=== PATIENT | female | born 1975 | race Caucasian/White ===

== ENCOUNTER 2020-04-11 20:26 | Inpatient (IN) | payer MEDICAID ==
[~2020-04-11] VITALS: Ht 165.1 cm; Wt 57.8 kg
[2020-04-11 22:10] LABS: AMPHET/METH SCREEN,URINE POSITIVE (NEGATIVE); BARBITURATE SCREEN, URINE NEGATIVE (NEGATIVE); BENZODIAZEPINES SCREEN,URINE NEGATIVE (NEGATIVE); CANNABINOID SCREEN,URINE NEGATIVE (NEGATIVE); COCAINE SCREEN,URINE NEGATIVE (NEGATIVE); METHADONE SCREEN, URINE NEGATIVE (NEGATIVE); OPIATE SCREEN,URINE NEGATIVE (NEGATIVE)
[2020-04-11 22:14] LABS: PHENCYCLIDINE SCREEN,URINE NEGATIVE (NEGATIVE)
[2020-04-11 22:31] LABS: BASOPHILS % (AUTO) 0.9 % (0.0-2.0); EOSINOPHILS % (AUTO) 1.8 % (1.0-6.0); HEMATOCRIT 33.4 % (36-46); LYMPHOCYTES # (AUTO) 2.3 K/uL (1.0-4.8); LYMPHOCYTES % (AUTO) 22.4 % (22.0-44.0); MEAN CORPUSCULAR HEMOGLOBIN 28.1 pg (26.0-34.0); MEAN CORPUSCULAR VOLUME 85 fL (80-100); MONOCYTES # (AUTO) 0.9 K/uL (0.1-1.0); NEUTROPHILS # (AUTO) 6.7 K/uL (1.8-7.7); NEUTROPHILS % (AUTO) 65.9 % (40.0-70.0); PLATELET COUNT (AUTO) 296 K/uL (150-450); RED BLOOD CELL COUNT(AUTO) 3.92 MIL/uL (4.00-5.20); RED CELL DISTRIBUTION WIDTH 14.9 % (11.5-14.5)
[2020-04-11] MEDS ORDERED: LORazepam 2 MG TABLET PO ONE (23:00)
[2020-04-11] MEDS ORDERED: IBUPROFEN 600 MG TABLET PO ONE (23:00)
[2020-04-11 23:11] LABS: ANION GAP 8 mmol/L (8-16); CALCIUM, TOTAL 9.3 mg/dL (8.8-10.5); CARBON DIOXIDE 28 mmol/L (22-29); CHLORIDE 101 mmol/L (98-107); CREATININE 0.84 mg/dL (0.60-1.30); GLOMERULAR FILTR. RATE CALC > 60 mL/min (>60); GLUCOSE,RANDOM 105 mg/dL (70-110); POTASSIUM 3.7 mmol/L (3.5-5.1); SODIUM SERUM 137 mmol/L (136-145)
[2020-04-11 23:34] LABS: ALANINE AMINOTRANSFERASE 17 U/L (12-78); ALBUMIN 3.2 g/dL (3.4-5.0); ALKALINE PHOSPHATASE 82 U/L (46-116); ASPARTATE AMINOTRANSFERASE 14 U/L (15-37); BILIRUBIN,TOTAL 0.3 mg/dL (0.1-1.0); HCG,QUANTITATIVE 2 mIU/mL (0-6); TOTAL PROTEIN, SERUM 7.3 g/dL (6.4-8.2); UREA NITROGEN, BLOOD 21 mg/dL (7-18)
[2020-04-12] MEDS ORDERED: ZOLPIDEM TARTRATE 10 MG TABLET PO PRN (01:00)
[2020-04-12 02:45] VITALS: BP 108/67
[2020-04-12] MEDS ORDERED: BENZOCAINE/MENTHOL LOZENGE MM PRN (06:45)
[2020-04-12] MEDS ORDERED: OMEPRAZOLE 20 MG CAPSULE PO PRN (06:45)
[2020-04-12] MEDS ORDERED: ACETAMINOPHEN 325 MG TABLET PO PRN (06:45)
[2020-04-12] MEDS ORDERED: IBUPROFEN 600 MG TABLET PO PRN (06:45)
[2020-04-12] MEDS ORDERED: LOPERAMIDE HCL 2 MG CAPSULE PO PRN (06:45)
[2020-04-12] MEDS ORDERED: BACITRACIN 28.4 GM OINTMENT TP PRN (06:45)
[2020-04-12] MEDS ORDERED: PETROLATUM,WHITE 28 GM JELLY TP PRN (06:45)
[2020-04-12] MEDS ORDERED: MAG HYDROX/AL HYDROX/SIMETH ES 30 ML SUSPENSION UDCUP PO PRN (06:45)
[2020-04-12] MEDS ORDERED: ONDANSETRON HCL 4 MG TABLET PO PRN (06:45)
[2020-04-12] MEDS ORDERED: CloNIDine HCL 0.1 MG TABLET PO PRN (06:45)
[2020-04-12 08:00] VITALS: BP 106/72
[2020-04-12 16:38] VITALS: BP 102/61
[2020-04-12] MEDS: LORazepam 2 MG TABLET PO PRN (16:52)
[2020-04-13 03:30] VITALS: BP 101/63
[2020-04-13] MEDS: LORazepam 2 MG TABLET PO PRN ×2 (03:34→10:42)
[2020-04-13 07:00] LABS: CHOL/HDL RATIO 2.6 (3.9-5.7)
[2020-04-13 08:50] VITALS: BP 144/82
[2020-04-13] MEDS: HALOPERIDOL 5 MG TABLET PO PRN (10:42)
[2020-04-13] MEDS: RisperiDONE 1 MG TABLET PO SCH (16:44)
[2020-04-13 17:00] VITALS: BP 97/59
[2020-04-14] MEDS: LORazepam 2 MG TABLET PO PRN ×2 (00:21→12:51)
[2020-04-14 08:00] VITALS: BP 97/55
[2020-04-14] MEDS: RisperiDONE 1 MG TABLET PO SCH ×2 (08:46→16:28)
[2020-04-14 11:47] VITALS: BP 88/62
[2020-04-14 12:40] VITALS: BP 111/78
[2020-04-14] MEDS: CEPHALEXIN MONOHYDRATE 500 MG CAPSULE PO SCH ×2 (12:54→16:28)
[2020-04-14] MEDS: MIDODRINE HCL 5 MG TABLET PO SCH ×2 (13:28→16:28)
[2020-04-14 14:10] VITALS: BP 127/68
[2020-04-14] MEDS: HALOPERIDOL 5 MG TABLET PO PRN (14:12)
[2020-04-14] MEDS: ALBUTEROL SULFATE HFA 90 MCG/PUFF 8 GM INHALER IH PRN (14:46)
[2020-04-14 17:02] VITALS: BP 120/73
[2020-04-15 08:00] VITALS: BP 112/69
[2020-04-15] MEDS: MIDODRINE HCL 5 MG TABLET PO SCH ×3 (08:08→16:21)
[2020-04-15] MEDS: CEPHALEXIN MONOHYDRATE 500 MG CAPSULE PO SCH ×3 (08:10→16:20)
[2020-04-15] MEDS: HALOPERIDOL 5 MG TABLET PO PRN (08:11)
[2020-04-15] MEDS: LORazepam 2 MG TABLET PO PRN ×2 (08:11→17:06)
[2020-04-15] MEDS: RisperiDONE 1 MG TABLET PO SCH ×2 (08:11→16:21)
[2020-04-15] MEDS: DOCUSATE SODIUM 100 MG CAPSULE PO PRN (08:32)
[2020-04-15] MEDS: MAGNESIUM HYDROXIDE SUSPENSION 30 ML UDCUP PO PRN (08:34)
[2020-04-15] MEDS: ALBUTEROL SULFATE HFA 90 MCG/PUFF 8 GM INHALER IH PRN (15:38)
[2020-04-15 16:00] VITALS: BP 114/72
[2020-04-15 20:00] VITALS: BP 107/58
[2020-04-16 06:25] VITALS: BP 105/59
[2020-04-16] MEDS: MIDODRINE HCL 5 MG TABLET PO SCH ×3 (09:09→16:44)
[2020-04-16] MEDS: CEPHALEXIN MONOHYDRATE 500 MG CAPSULE PO SCH ×3 (09:09→16:43)
[2020-04-16] MEDS: RisperiDONE 1 MG TABLET PO SCH (09:09)
[2020-04-16] MEDS: LORazepam 2 MG TABLET PO PRN ×3 (09:09→17:40)
[2020-04-16 09:46] VITALS: BP 111/70
[2020-04-16 16:00] VITALS: BP 103/64
[2020-04-16] MEDS: RisperiDONE 2 MG TABLET PO SCH (16:43)
[2020-04-17 08:49] VITALS: BP 108/65
[2020-04-17] MEDS: CEPHALEXIN MONOHYDRATE 500 MG CAPSULE PO SCH ×3 (09:09→16:17)
[2020-04-17] MEDS: RisperiDONE 2 MG TABLET PO SCH ×2 (09:09→16:17)
[2020-04-17] MEDS: LORazepam 2 MG TABLET PO PRN ×4 (09:09→17:47)
[2020-04-17] MEDS: MIDODRINE HCL 5 MG TABLET PO SCH ×3 (09:15→16:17)
[2020-04-17 19:54] VITALS: BP 103/60
[2020-04-18 08:00] VITALS: BP 102/65
[2020-04-18] MEDS: HALOPERIDOL 5 MG TABLET PO PRN ×2 (08:34→13:20)
[2020-04-18] MEDS: LORazepam 2 MG TABLET PO PRN ×2 (08:34→13:20)
[2020-04-18] MEDS: MIDODRINE HCL 5 MG TABLET PO SCH ×3 (08:34→16:37)
[2020-04-18] MEDS: RisperiDONE 2 MG TABLET PO SCH ×2 (08:34→16:37)
[2020-04-18] MEDS: CEPHALEXIN MONOHYDRATE 500 MG CAPSULE PO SCH ×3 (08:34→16:37)
[2020-04-18 16:01] VITALS: BP 111/66
[2020-04-19] MEDS: LORazepam 2 MG TABLET PO PRN ×3 (03:42→13:59)
[2020-04-19 03:54] VITALS: BP 109/67
[2020-04-19 08:00] VITALS: BP 119/76
[2020-04-19] MEDS: CEPHALEXIN MONOHYDRATE 500 MG CAPSULE PO SCH ×3 (08:13→16:03)
[2020-04-19] MEDS: MIDODRINE HCL 5 MG TABLET PO SCH ×3 (08:13→16:04)
[2020-04-19] MEDS: RisperiDONE 2 MG TABLET PO SCH ×2 (08:13→16:04)
[2020-04-19] MEDS: DOCUSATE SODIUM 100 MG CAPSULE PO PRN (08:15)
[2020-04-19 12:39] VITALS: BP 112/70
[2020-04-19 13:37] VITALS: BP 105/59
[2020-04-19 16:56] VITALS: BP 126/66
[2020-04-20 05:30] VITALS: BP 91/69
[2020-04-20] MEDS: MIDODRINE HCL 5 MG TABLET PO SCH ×3 (08:32→16:09)
[2020-04-20] MEDS: HALOPERIDOL 5 MG TABLET PO PRN ×2 (08:32→16:13)
[2020-04-20] MEDS: RisperiDONE 2 MG TABLET PO SCH ×2 (08:32→16:09)
[2020-04-20] MEDS: LORazepam 2 MG TABLET PO PRN ×2 (08:32→14:09)
[2020-04-20] MEDS: CEPHALEXIN MONOHYDRATE 500 MG CAPSULE PO SCH ×3 (08:32→16:09)
[2020-04-20] MEDS: MAGNESIUM HYDROXIDE SUSPENSION 30 ML UDCUP PO PRN (08:32)
[2020-04-20 11:14] VITALS: BP 107/64
[2020-04-20 16:00] VITALS: BP 116/83
[2020-04-21 07:00] VITALS: BP 100/67
[2020-04-21] MEDS: LORazepam 2 MG TABLET PO PRN ×3 (07:01→11:01)
[2020-04-21] MEDS: MIDODRINE HCL 5 MG TABLET PO SCH ×2 (09:34→13:54)
[2020-04-21] MEDS: RisperiDONE 2 MG TABLET PO SCH (09:34)
[2020-04-21] MEDS: HALOPERIDOL 5 MG TABLET PO PRN (09:34)
[2020-04-21] MEDS: CEPHALEXIN MONOHYDRATE 500 MG CAPSULE PO SCH (09:34)
[2020-04-21 09:43] VITALS: BP 94/66
[2020-04-21] MEDS ORDERED: RISP2TAB23 PO (13:14)
== END 2020-04-21 16:00 | disposition home or self-care (01) | DRG 885 ==
LOC: EMS 20:30 → 3EI 04-12 00:46
PROVIDERS: ADMIT Psychiatry & Neurology Psychiatry; ATTEND Psychiatry & Neurology Psychiatry
DX: F20.0 Paranoid schizophrenia (principal); R45.851 Suicidal ideations; F17.210 Nicotine dependence, cigarettes, uncomplicated; F15.10 Other stimulant abuse, uncomplicated; Z59.0 Homelessness; F41.9 Anxiety disorder, unspecified; G47.00 Insomnia, unspecified; K59.00 Constipation, unspecified
CPT/HCPCS: G0480; J3535

== ENCOUNTER 2023-07-07 11:36 | Inpatient (IN) | payer MEDICAID ==
[~2023-07-07] VITALS: Ht 165.1 cm; Wt 55.3 kg
[~2023-07-07 11:36] MED LIST: RISP2TAB45 PO
[2023-07-07 13:57] LABS: EOSINOPHILS % (AUTO) 1.1 % (1.0-6.0); HEMATOCRIT 31.2 % (36-46); HEMOGLOBIN 10.2 g/dL (12.0-16.0); LYMPHOCYTES # (AUTO) 1.4 K/uL (1.0-4.8); MEAN CORPUSCULAR HEMOGLOBIN 28.2 pg (26.0-34.0); MEAN CORPUSCULAR HGB CONC 32.6 G/dL (31.0-37.0); MEAN CORPUSCULAR VOLUME 86 fL (80-100); MONOCYTES # (AUTO) 0.7 K/uL (0.1-1.0); MONOCYTES % (AUTO) 10.3 % (2.0-9.0); NEUTROPHILS # (AUTO) 4.6 K/uL (1.8-7.7); NEUTROPHILS % (AUTO) 67.6 % (40.0-70.0); PLATELET COUNT (AUTO) 288 K/uL (150-450); RED BLOOD CELL COUNT(AUTO) 3.61 MIL/uL (4.00-5.20); RED CELL DISTRIBUTION WIDTH 15.2 % (11.5-14.5); WHITE BLOOD COUNT (AUTO) 6.8 K/uL (4.5-11.0)
[2023-07-07 14:07] LABS: ANION GAP 6 mmol/L (8-16); CALCIUM, TOTAL 9.1 mg/dL (8.8-10.5); CARBON DIOXIDE 29 mmol/L (22-29); CHLORIDE 101 mmol/L (98-107); CREATININE 0.51 mg/dL (0.60-1.30); GLOMERULAR FILTR. RATE CALC > 60 mL/min (>60); GLUCOSE,RANDOM 88 mg/dL (70-110); POTASSIUM 3.7 mmol/L (3.5-5.1); SODIUM SERUM 136 mmol/L (136-145); UREA NITROGEN, BLOOD 13 mg/dL (7-18)
[2023-07-07 14:14] LABS: ALANINE AMINOTRANSFERASE 23 U/L (12-78); ALBUMIN 3.1 g/dL (3.4-5.0); ALKALINE PHOSPHATASE 101 U/L (46-116); ASPARTATE AMINOTRANSFERASE 17 U/L (15-37); BILIRUBIN,TOTAL 0.6 mg/dL (0.1-1.0); TOTAL PROTEIN, SERUM 6.9 g/dL (6.4-8.2)
[2023-07-07 14:16] LABS: ALCOHOL, BLOOD (SERUM) < 3 mg/dL (0-10)
[2023-07-07 14:50] LABS: COVID AG,FIA SOURCE NASAL SWAB
[2023-07-07] MEDS ORDERED: ZOLPIDEM TARTRATE 10 MG TABLET PO PRN (15:15)
[2023-07-07 15:28] LABS: APPEARANCE,URINE CLEAR (CLEAR); BILIRUBIN,URINE NEGATIVE (NEGATIVE); COLOR,URINE YELLOW (YELLOW); GLUCOSE, URINE (UA) NEGATIVE (NEGATIVE); KETONES,URINE NEGATIVE (NEGATIVE); LEUKOCYTE ESTERASE ,URINE LARGE (NEGATIVE); NITRATE,URINE NEGATIVE (NEGATIVE); OCCULT BLOOD,URINE NEGATIVE (NEGATIVE); PH,URINE 6.5 (5.0-8.0); PH,URINE DRUG SCREEN 6.5 (5.0-8.0); PROTEIN,URINE TRACE mg/dL (NEGATIVE); SPECIFIC GRAVITIY, URINE 1.023 (1.003-1.030); UROBILINOGEN,URINE <=1.0 mg/dL (<=1.0)
[2023-07-07 15:31] LABS: SARS-COV2 (COVID) ANTIGEN,FIA Negative (Negative)
[2023-07-07 15:36] LABS: ALCOHOL, URINE DRUG SCREEN NEGATIVE (NEGATIVE); AMPHET/METH SCREEN,URINE POSITIVE (NEGATIVE); BARBITURATE SCREEN, URINE NEGATIVE (NEGATIVE); BENZODIAZEPINES SCREEN,URINE NEGATIVE (NEGATIVE); CANNABINOID SCREEN,URINE NEGATIVE (NEGATIVE); COCAINE SCREEN,URINE POSITIVE (NEGATIVE); METHADONE SCREEN, URINE NEGATIVE (NEGATIVE); OPIATE SCREEN,URINE NEGATIVE (NEGATIVE); PHENCYCLIDINE SCREEN,URINE NEGATIVE (NEGATIVE)
[2023-07-07 15:39] LABS: BACTERIA,URINE Few /HPF (None Seen); RBC,URINE None Seen /HPF (0-2); SQUAMOUS EPITHELIAL CELL,UR Few /LPF (None Seen)
[2023-07-07] MEDS: LORazepam 2 MG TABLET PO PRN (15:47)
[2023-07-07] MEDS ORDERED: CEPHALEXIN MONOHYDRATE 500 MG CAPSULE PO ONE (16:00)
[2023-07-07] MEDS ORDERED: DiphenhydrAMINE HCL 25 MG CAPSULE PO ONE (16:15)
[2023-07-07 20:41] VITALS: BP 107/65; PULSE 74; RESP 18; TEMP 97.9; O2SAT 96
[2023-07-08] MEDS ORDERED: INFLUENZA VIRUS VACCINE QVS 2023-24 (6MO+)/PF 60 MCG/0.5 ML SYRINGE IM. ONE (04:00)
[2023-07-08 08:21] VITALS: BP 105/62; PULSE 78; RESP 18; TEMP 97.8; O2SAT 98
[2023-07-08] MEDS: LORazepam 2 MG TABLET PO PRN ×2 (13:00→17:37)
[2023-07-08] MEDS: RisperiDONE 2 MG TABLET PO SCH (13:01)
[2023-07-08] MEDS: HALOPERIDOL 5 MG TABLET PO PRN (13:03)
[2023-07-08 20:04] VITALS: TEMP 97.7
[2023-07-09] MEDS: RisperiDONE 2 MG TABLET PO SCH ×3 (08:30→21:19)
[2023-07-09 08:51] VITALS: BP 106/64; PULSE 97; RESP 16; TEMP 97.9; O2SAT 96
[2023-07-09] MEDS: HydrOXYzine PAMOATE 25 MG CAPSULE PO PRN (12:50)
[2023-07-09] MEDS: HALOPERIDOL 5 MG TABLET PO PRN (12:55)
[2023-07-09 20:19] VITALS: BP 99/58; PULSE 75; RESP 17; TEMP 98; O2SAT 100
[2023-07-10 08:32] VITALS: BP 121/74; PULSE 114; RESP 17; TEMP 97.9; O2SAT 97
[2023-07-10] MEDS: RisperiDONE 2 MG TABLET PO SCH ×2 (08:53→20:24)
[2023-07-10] MEDS: HydrOXYzine PAMOATE 25 MG CAPSULE PO PRN (08:53)
[2023-07-10 20:17] VITALS: BP 112/79; PULSE 102; RESP 20; TEMP 98.1; O2SAT 100
[2023-07-11] MEDS: RisperiDONE 2 MG TABLET PO SCH ×2 (08:23→20:11)
[2023-07-11] MEDS: HALOPERIDOL 5 MG TABLET PO PRN (08:23)
[2023-07-11] MEDS: HydrOXYzine PAMOATE 25 MG CAPSULE PO PRN (08:23)
[2023-07-11 08:29] VITALS: BP 103/69; PULSE 92; RESP 17; TEMP 97.3; O2SAT 100
[2023-07-11] MEDS: SULFAMETHOX/TRIMETH DS 800-160 MG/TABLET PO SCH (19:33)
[2023-07-11] MEDS: BACITRACIN 28 GM OINTMENT TP SCH (19:35)
[2023-07-11] MEDS: CEPHALEXIN MONOHYDRATE 500 MG CAPSULE PO SCH (19:35)
[2023-07-11 20:06] VITALS: BP 106/60; PULSE 84; RESP 18; TEMP 98.3; O2SAT 99
[2023-07-12 03:15] VITALS: BP 103/66; PULSE 100; RESP 17; TEMP 97.7; O2SAT 100
[2023-07-12] MEDS: HALOPERIDOL 5 MG TABLET PO PRN ×3 (03:23→21:47)
[2023-07-12] MEDS: HydrOXYzine PAMOATE 25 MG CAPSULE PO PRN (03:23)
[2023-07-12 08:29] VITALS: BP 102/60; PULSE 82; RESP 17; TEMP 97.8; O2SAT 95
[2023-07-12] MEDS: CEPHALEXIN MONOHYDRATE 500 MG CAPSULE PO SCH ×3 (08:55→16:21)
[2023-07-12] MEDS: RisperiDONE 2 MG TABLET PO SCH ×2 (08:55→21:47)
[2023-07-12] MEDS: SULFAMETHOX/TRIMETH DS 800-160 MG/TABLET PO SCH ×2 (08:55→16:20)
[2023-07-12] MEDS ORDERED: IBUPROFEN 400 MG TABLET PO PRN (10:00)
[2023-07-12] MEDS ORDERED: ACETAMINOPHEN 325 MG TABLET PO PRN ×2 (10:00→10:45)
[2023-07-12] MEDS: BACITRACIN 28 GM OINTMENT TP SCH (10:07)
[2023-07-12] MEDS ORDERED: LOPERAMIDE HCL 2 MG CAPSULE PO PRN (10:45)
[2023-07-12] MEDS ORDERED: ONDANSETRON HCL 4 MG TABLET PO PRN (10:45)
[2023-07-12] MEDS ORDERED: GuaiFENesin/D-METHORPHAN [SUGAR-FREE] 200-20MG/10 ML SYRUP UDCUP PO PRN (10:45)
[2023-07-12] MEDS ORDERED: CloNIDine HCL 0.1 MG TABLET PO PRN (10:45)
[2023-07-12] MEDS ORDERED: NICOTINE 14 MG/24 HOUR PATCH TD PRN (10:45)
[2023-07-12] MEDS ORDERED: ALBUTEROL SULFATE HFA 90 MCG/PUFF 8 GM INHALER IH PRN (10:45)
[2023-07-12] MEDS ORDERED: MAG HYDROX/ALUMINUM HYD/SIMETH ES 30 ML SUSPENSION UDCUP PO PRN (10:45)
[2023-07-12] MEDS ORDERED: PETROLATUM,WHITE 28 GM JELLY TP PRN (10:45)
[2023-07-12] MEDS ORDERED: DOCUSATE SODIUM 100 MG CAPSULE PO PRN (10:45)
[2023-07-12] MEDS ORDERED: MAGNESIUM HYDROXIDE SUSPENSION 30 ML UDCUP PO PRN (10:45)
[2023-07-12 20:29] VITALS: BP 105/72; PULSE 93; RESP 18; TEMP 98.9; O2SAT 99
[2023-07-13] MEDS: SULFAMETHOX/TRIMETH DS 800-160 MG/TABLET PO SCH ×2 (08:04→16:49)
[2023-07-13] MEDS: RisperiDONE 2 MG TABLET PO SCH ×2 (08:04→20:28)
[2023-07-13] MEDS: CEPHALEXIN MONOHYDRATE 500 MG CAPSULE PO SCH ×3 (08:04→16:49)
[2023-07-13] MEDS: BACITRACIN 28 GM OINTMENT TP SCH (08:05)
[2023-07-13 08:48] VITALS: BP 108/57; PULSE 97; RESP 17; TEMP 97.4; O2SAT 100
[2023-07-13 13:25] VITALS: RESP 18
[2023-07-13] MEDS: IBUPROFEN 400 MG TABLET PO PRN (13:25)
[2023-07-13 20:15] VITALS: BP 101/63; PULSE 89; RESP 18; TEMP 97.5; O2SAT 97
[2023-07-14 05:17] VITALS: BP 108/72; PULSE 95; RESP 17; TEMP 98.6; O2SAT 97
[2023-07-14] MEDS: HALOPERIDOL 5 MG TABLET PO PRN ×2 (05:22→12:58)
[2023-07-14] MEDS: IBUPROFEN 400 MG TABLET PO PRN (05:23)
[2023-07-14] MEDS: CEPHALEXIN MONOHYDRATE 500 MG CAPSULE PO SCH ×3 (08:46→16:04)
[2023-07-14] MEDS: SULFAMETHOX/TRIMETH DS 800-160 MG/TABLET PO SCH ×2 (08:46→16:04)
[2023-07-14] MEDS: RisperiDONE 2 MG TABLET PO SCH ×2 (08:46→20:25)
[2023-07-14] MEDS: BACITRACIN 28 GM OINTMENT TP SCH (09:19)
[2023-07-14 09:54] VITALS: BP 100/60; PULSE 99; RESP 16; TEMP 97.3; O2SAT 100
[2023-07-14] MEDS: HydrOXYzine PAMOATE 25 MG CAPSULE PO PRN (16:06)
[2023-07-14 20:46] VITALS: BP 118/68; PULSE 91; RESP 18; TEMP 97.7; O2SAT 100
[2023-07-15 08:06] VITALS: BP 118/62; PULSE 67; RESP 18; TEMP 97.7; O2SAT 100
[2023-07-15] MEDS: CEPHALEXIN MONOHYDRATE 500 MG CAPSULE PO SCH ×3 (08:23→18:08)
[2023-07-15] MEDS: SULFAMETHOX/TRIMETH DS 800-160 MG/TABLET PO SCH ×2 (08:23→18:07)
[2023-07-15] MEDS: RisperiDONE 2 MG TABLET PO SCH ×2 (08:23→20:14)
[2023-07-15] MEDS: BACITRACIN 28 GM OINTMENT TP SCH (08:24)
[2023-07-15 08:50] LABS: BASOPHILS % (AUTO) 0.6 % (0.0-2.0); EOSINOPHILS % (AUTO) 1.8 % (1.0-6.0); HEMATOCRIT 34.9 % (36-46); HEMOGLOBIN 11.4 g/dL (12.0-16.0); LYMPHOCYTES # (AUTO) 1.6 K/uL (1.0-4.8); LYMPHOCYTES % (AUTO) 29.7 % (22.0-44.0); MEAN CORPUSCULAR HEMOGLOBIN 28.5 pg (26.0-34.0); MEAN CORPUSCULAR HGB CONC 32.6 G/dL (31.0-37.0); MEAN CORPUSCULAR VOLUME 87 fL (80-100); MONOCYTES # (AUTO) 0.4 K/uL (0.1-1.0); MONOCYTES % (AUTO) 8.4 % (2.0-9.0); NEUTROPHILS # (AUTO) 3.2 K/uL (1.8-7.7); NEUTROPHILS % (AUTO) 59.5 % (40.0-70.0); PLATELET COUNT (AUTO) 281 K/uL (150-450); RED BLOOD CELL COUNT(AUTO) 3.99 MIL/uL (4.00-5.20); WHITE BLOOD COUNT (AUTO) 5.3 K/uL (4.5-11.0)
[2023-07-15 09:21] LABS: ALANINE AMINOTRANSFERASE 27 U/L (12-78); ALBUMIN 3.2 g/dL (3.4-5.0); ALKALINE PHOSPHATASE 117 U/L (46-116); ANION GAP 5 mmol/L (8-16); ASPARTATE AMINOTRANSFERASE 19 U/L (15-37); BILIRUBIN,TOTAL 0.3 mg/dL (0.1-1.0); CALCIUM, TOTAL 9.9 mg/dL (8.8-10.5); CARBON DIOXIDE 29 mmol/L (22-29); CHLORIDE 101 mmol/L (98-107); CREATININE 0.65 mg/dL (0.60-1.30); GLOMERULAR FILTR. RATE CALC > 60 mL/min (>60); GLUCOSE,RANDOM 94 mg/dL (70-110); HEMOGLOBIN A1C 5.2 % (3.8-5.6); POTASSIUM 4.5 mmol/L (3.5-5.1); SODIUM SERUM 135 mmol/L (136-145); THYROID STIMULATING HORMONE 14.53 uIU/mL (0.36-3.74); TOTAL PROTEIN, SERUM 8.1 g/dL (6.4-8.2); UREA NITROGEN, BLOOD 14 mg/dL (7-18)
[2023-07-15 22:10] VITALS: BP 95/60; PULSE 88; RESP 18; TEMP 98; O2SAT 100
[2023-07-16 08:26] VITALS: BP 106/67; PULSE 88; RESP 19; TEMP 97.6; O2SAT 98
[2023-07-16] MEDS: CEPHALEXIN MONOHYDRATE 500 MG CAPSULE PO SCH ×3 (08:39→16:41)
[2023-07-16] MEDS: RisperiDONE 2 MG TABLET PO SCH ×2 (08:39→20:33)
[2023-07-16] MEDS: SULFAMETHOX/TRIMETH DS 800-160 MG/TABLET PO SCH ×2 (08:39→16:41)
[2023-07-16] MEDS: BACITRACIN 28 GM OINTMENT TP SCH (08:42)
[2023-07-16] MEDS: HALOPERIDOL 5 MG TABLET PO PRN ×2 (12:47→21:29)
[2023-07-16] MEDS: HydrOXYzine PAMOATE 25 MG CAPSULE PO PRN (16:47)
[2023-07-16 20:25] VITALS: BP 111/64; PULSE 100; RESP 18; TEMP 97.6; O2SAT 97
[2023-07-17 08:08] VITALS: BP 106/90; PULSE 89; RESP 17; TEMP 97.8; O2SAT 96
[2023-07-17] MEDS: SULFAMETHOX/TRIMETH DS 800-160 MG/TABLET PO SCH ×2 (09:06→16:21)
[2023-07-17] MEDS: RisperiDONE 2 MG TABLET PO SCH ×2 (09:06→20:37)
[2023-07-17] MEDS: CEPHALEXIN MONOHYDRATE 500 MG CAPSULE PO SCH ×3 (09:06→16:21)
[2023-07-17] MEDS: BACITRACIN 28 GM OINTMENT TP SCH (09:06)
[2023-07-17] MEDS: HALOPERIDOL 5 MG TABLET PO PRN (11:43)
[2023-07-17 21:58] VITALS: BP 102/60; PULSE 88; RESP 18; TEMP 98.2; O2SAT 97
[2023-07-18 05:12] VITALS: BP 105/64; PULSE 95; RESP 17; TEMP 97.6; O2SAT 100
[2023-07-18] MEDS: HALOPERIDOL 5 MG TABLET PO PRN ×3 (05:25→16:14)
[2023-07-18] MEDS: SULFAMETHOX/TRIMETH DS 800-160 MG/TABLET PO SCH ×2 (08:39→16:15)
[2023-07-18] MEDS: RisperiDONE 2 MG TABLET PO SCH ×2 (08:39→21:21)
[2023-07-18] MEDS: CEPHALEXIN MONOHYDRATE 500 MG CAPSULE PO SCH ×3 (08:39→16:15)
[2023-07-18] MEDS: BACITRACIN 28 GM OINTMENT TP SCH (08:44)
[2023-07-18 09:16] VITALS: BP 103/71; PULSE 102; RESP 16; TEMP 97.7; O2SAT 100
[2023-07-18 13:25] VITALS: RESP 16
[2023-07-18] MEDS: HydrOXYzine PAMOATE 25 MG CAPSULE PO PRN ×2 (13:25→18:14)
[2023-07-18] MEDS: IBUPROFEN 400 MG TABLET PO PRN (13:25)
[2023-07-18 14:25] VITALS: RESP 18
[2023-07-18 20:08] VITALS: BP 95/61; PULSE 81; RESP 17; TEMP 97.8; O2SAT 99
[2023-07-19 04:00] VITALS: BP 158/108; PULSE 85; RESP 20; TEMP 98.2; O2SAT 98
[2023-07-19 08:09] VITALS: BP 111/68; PULSE 69; RESP 18; TEMP 97.8; O2SAT 98
[2023-07-19] MEDS: RisperiDONE 2 MG TABLET PO SCH ×2 (08:42→20:09)
[2023-07-19] MEDS: SULFAMETHOX/TRIMETH DS 800-160 MG/TABLET PO SCH ×2 (08:42→17:17)
[2023-07-19] MEDS: CEPHALEXIN MONOHYDRATE 500 MG CAPSULE PO SCH ×3 (08:42→17:17)
[2023-07-19] MEDS: BACITRACIN 28 GM OINTMENT TP SCH (09:50)
[2023-07-20 06:35] VITALS: BP 95/60; PULSE 79; RESP 18; TEMP 96; O2SAT 96
[2023-07-20 08:12] VITALS: BP 104/63; PULSE 97; RESP 17; TEMP 97.4; O2SAT 98
[2023-07-20] MEDS: CEPHALEXIN MONOHYDRATE 500 MG CAPSULE PO SCH ×3 (08:33→16:20)
[2023-07-20] MEDS: RisperiDONE 2 MG TABLET PO SCH ×2 (08:33→20:12)
[2023-07-20] MEDS: SULFAMETHOX/TRIMETH DS 800-160 MG/TABLET PO SCH ×2 (08:33→16:20)
[2023-07-20] MEDS: BACITRACIN 28 GM OINTMENT TP SCH (08:34)
[2023-07-20 21:05] VITALS: BP 103/52; PULSE 101; RESP 18; TEMP 98.8; O2SAT 98
[2023-07-21] MEDS: HydrOXYzine PAMOATE 25 MG CAPSULE PO PRN (07:17)
[2023-07-21 08:19] VITALS: BP 108/65; PULSE 96; RESP 18; TEMP 97.5; O2SAT 100
[2023-07-21] MEDS: RisperiDONE 2 MG TABLET PO SCH ×2 (09:42→20:33)
[2023-07-21] MEDS: SULFAMETHOX/TRIMETH DS 800-160 MG/TABLET PO SCH (09:42)
[2023-07-21] MEDS: CEPHALEXIN MONOHYDRATE 500 MG CAPSULE PO SCH ×2 (09:42→12:45)
[2023-07-21] MEDS: BACITRACIN 28 GM OINTMENT TP SCH (09:43)
[2023-07-21 20:52] VITALS: BP 96/64; PULSE 86; RESP 18; TEMP 98.3; O2SAT 96
[2023-07-21 21:02] LABS: GLUCOMETER DEV NAME(LOC) POC.BV; POC SARS-COV2 AG, FIA NEGATIVE (NEGATIVE)
[2023-07-22 08:22] VITALS: BP 102/62; PULSE 90; RESP 19; TEMP 97.5; O2SAT 100
[2023-07-22] MEDS ORDERED: RISP2TAB86 PO ×2 (08:39→11:41)
[2023-07-22] MEDS: RisperiDONE 2 MG TABLET PO SCH (08:55)
[2023-07-22] MEDS: BACITRACIN 28 GM OINTMENT TP SCH (08:57)
== END 2023-07-22 11:15 | disposition home or self-care (01) | DRG 750 ==
LOC: EMS 11:47 → B2S 15:49
PROVIDERS: ADMIT Psychiatry & Neurology Psychiatry; ATTEND Psychiatry & Neurology Psychiatry
DX: F20.0 Paranoid schizophrenia (principal); R45.851 Suicidal ideations; D64.9 Anemia, unspecified; F41.9 Anxiety disorder, unspecified; N39.0 Urinary tract infection, site not specified; Z20.822 Contact with and (suspected) exposure to COVID-19; F19.10 Other psychoactive substance abuse, uncomplicated; Z59.00 Homelessness unspecified; Z79.899 Other long term (current) drug therapy; Z87.891 Personal history of nicotine dependence
CPT/HCPCS: 80053; 80307; 81001; 83036; 84443; 85025; 87086; 87186; 99285; G0480